=== PATIENT | male | born 1955 | race Caucasian/White ===

== ENCOUNTER → 2016-11-17 | Day surgery (SDC) | payer OTHER ==
[~2016-11-17] MED LIST: ALBUTEROL0.63 MG/3 INH; ANASTROZOLE1 MG PO; ASPIR 8181 MG PO; ASPIRIN CHEWABL81 MG PO; CATAPRES 0.1MG0.1 MG PO; ESCITALOPRAM OX10 MG PO; FENOFIBRATE134 MG PO; FINASTERIDE5 MG PO; FLOMAX 0.4 MG0.4 MG PO; FUROSEMIDE20 MG PO; HYSINGLA ER30 MG PO; IMDUR ER TAB 6060 MG PO; ISOSORBIDE MONO60 MG PO; LANTUS100 UNIT/1 SC; LANTUS100 UNIT/1 SQ; LEVOTHYROXINE88 MCG PO; LEXAPRO TAB 1010 MG PO; LIVALO4 MG PO; LYRICA100 MG PO; LYRICA150 MG PO; METFORMIN HCL1000 MG PO; METOPROLOL SUC100 MG PO; METOPROLOL TAR100 MG PO; NITROGLYCERIN0.4 MG SL; NITROSTAT 0.40.4 MG SL; NOVOLOG 10100 UNITS1 INJ; NOVOLOG100 UNIT/1 SC; PANTOPRAZOLE SO40 MG PO; PLAVIX 75 MG TA75 MG PO; POTASSIUM99 M1 PO; PROTONIX 40 MG40 M1 PO; RANEXA500 MG PO; SULAMYD 10% OP15 ML OP; SULFACETAMIDE S15 ML OU; SYMBICORT 160-1 INHA INH; SYMBICORT 16010.2 GM INH; VENTOLIN/PROVE0.5 ML INH
== END | disposition home or self-care (01) ==
LOC: OR 07:42
PROVIDERS: Internal Medicine Gastroenterology
PROC: 0DBM8ZZ Excision of Descending Colon, Via Natural or Artificial Opening Endoscopic (ICD-10-PCS; 2016-11-17)
PROC: 0DBN8ZZ Excision of Sigmoid Colon, Via Natural or Artificial Opening Endoscopic (ICD-10-PCS; 2016-11-17)
PROC: 0DBL8ZZ Excision of Transverse Colon, Via Natural or Artificial Opening Endoscopic (ICD-10-PCS; 2016-11-17)
PROC: 0DB68ZX Excision of Stomach, Via Natural or Artificial Opening Endoscopic, Diagnostic (ICD-10-PCS; principal; 2016-11-17 13:00)
PROC: 0DBK8ZZ Excision of Ascending Colon, Via Natural or Artificial Opening Endoscopic (ICD-10-PCS; 2016-11-17 13:00)
DX: D12.2 Benign neoplasm of ascending colon (principal); D12.3 Benign neoplasm of transverse colon; D12.4 Benign neoplasm of descending colon; D12.5 Benign neoplasm of sigmoid colon; K29.70 Gastritis, unspecified, without bleeding; E66.01 Morbid (severe) obesity due to excess calories; G47.33 Obstructive sleep apnea (adult) (pediatric); I73.9 Peripheral vascular disease, unspecified; K64.1 Second degree hemorrhoids; K59.8 Other specified functional intestinal disorders; Z88.8 Allergy status to other drugs, medicaments and biological substances; E11.9 Type 2 diabetes mellitus without complications; I10 Essential (primary) hypertension; I25.119 Atherosclerotic heart disease of native coronary artery with unspecified angina pectoris; N40.0 Benign prostatic hyperplasia without lower urinary tract symptoms; M19.90 Unspecified osteoarthritis, unspecified site; J44.9 Chronic obstructive pulmonary disease, unspecified; Z95.1 Presence of aortocoronary bypass graft; Z85.828 Personal history of other malignant neoplasm of skin; Z79.82 Long term (current) use of aspirin; Z79.4 Long term (current) use of insulin; Z79.51 Long term (current) use of inhaled steroids; Z79.899 Other long term (current) drug therapy; Z98.84 Bariatric surgery status; Z90.49 Acquired absence of other specified parts of digestive tract; Z86.73 Personal history of transient ischemic attack (TIA), and cerebral infarction without residual deficits
CPT/HCPCS: 82962; J7030

== ENCOUNTER → 2020-12-10 | Day surgery (SDC) | payer OTHER ==
[~2020-12-10] MED LIST changes: +ABILIFY15 MG PO; +COZAAR50 MG PO; +ECOTRIN81 MG PO; +ISOSORBIDE MON120 MG PO; -ISOSORBIDE MONO60 MG PO; -LANTUS100 UNIT/1 SQ; +LOPRESSOR100 MG PO; -LYRICA150 MG PO; +LYRICA50 MG PO; -METOPROLOL SUC100 MG PO; +NOVOLOG100 UNIT/1 SQ; +RAMIPRIL10 MG PO; +SYNTHROID100 MCG PO; +TOUJEO MAX300 UNIT/1 SQ; +[UNRECOGNIZED DRUG - OTHER] PO
== END | disposition home or self-care (01) ==
LOC: OR 06:15
DX: K62.1 Rectal polyp (principal); D50.9 Iron deficiency anemia, unspecified; E11.9 Type 2 diabetes mellitus without complications; J44.9 Chronic obstructive pulmonary disease, unspecified; I25.10 Atherosclerotic heart disease of native coronary artery without angina pectoris; I11.0 Hypertensive heart disease with heart failure; I50.9 Heart failure, unspecified; F41.8 Other specified anxiety disorders; K44.9 Diaphragmatic hernia without obstruction or gangrene; E66.01 Morbid (severe) obesity due to excess calories; K64.8 Other hemorrhoids; Z88.8 Allergy status to other drugs, medicaments and biological substances; Z95.1 Presence of aortocoronary bypass graft; Z95.5 Presence of coronary angioplasty implant and graft; Z82.49 Family history of ischemic heart disease and other diseases of the circulatory system; Z79.84 Long term (current) use of oral hypoglycemic drugs; Z79.82 Long term (current) use of aspirin; Z68.36 Body mass index [BMI] 36.0-36.9, adult
CPT/HCPCS: 82962; J2001; J2704; J7040